=== PATIENT | female | born 1945 | race African-American/Black ===

== ENCOUNTER 2017-03-22 16:53 | Emergency (ER) | payer MEDICARE, OTHER ==
[2017-03-22] MEDS ORDERED: ASPIRIN 81 MG TABLET, CHEWABLE PO ONE (17:56)
--- NOTE | 2017-03-22 18:05 | ER Document Report ---
ED Medical Screen (RME) - General Chief Complaint: Passed Out Prior to Arrival Stated Complaint: FALL SYNCOPE Time Seen by Provider: 03/22/17 17:55 Mode of Arrival: Wheelchair Information source: Patient Notes: I have greeted and performed a rapid initial assessment of this patient. A comprehensive ED assessment and evaluation of the patient, analysis of test results and completion of the medical decision making process will be conducted by additional ED providers. 72-year-old female presents after syncopal episode, patient noted to have an injury neck pain. Attempted c-collar placement but due to patient discomfort unable to do so PHYSICAL EXAMINATION: GENERAL: Well-appearing, well-nourished and in no acute distress. HEAD: Bandaging of the head bleeding noted EYES: Pupils equal round extraocular movements intact, conjunctiva are normal. ENT: Nares patent NECK: Normal range of motion LUNGS: No respiratory distress Musculoskeletal: Cervical tenderness midline Normal range of motion TRAVEL OUTSIDE OF THE [place] IN LAST 30 DAYS: No - Related Data Allergies/Adverse Reactions: No Known Allergies Allergy (Verified 03/22/17 17:06) Past Medical History - Past Medical History Cardiac Medical History: Reports: Hx Heart Attack, Hx Hypertension Denies: Hx Coronary Artery Disease Pulmonary Medical History: Denies: Hx Asthma, Hx Bronchitis, Hx COPD, Hx Pneumonia Neurological Medical History: Denies: Hx Cerebrovascular Accident, Hx Seizures Renal/ Medical History: Denies: Hx Peritoneal Dialysis Musculoskeltal Medical History: Denies Hx Arthritis Past Surgical History: Reports: Hx Hysterectomy - Immunizations Hx Diphtheria, Pertussis, Tetanus Vaccination: No Physical Exam - Vital signs Vitals: Temp Pulse Resp BP Pulse Ox 98.5 F 78 16 113/67 93 03/22/17 17:07 03/22/17 17:07 03/22/17 17:07 03/22/17 17:07 03/22/17 17:07 Course - Vital Signs Vital signs: Temp Pulse Resp BP Pulse Ox 98.5 F 78 16 113/67 93 03/22/17 17:07 03/22/17 17:07 03/22/17 17:07 03/22/17 17:07 03/22/17 17:07
--- NOTE | 2017-03-22 18:31 | ER Document Report ---
ED General - General Chief Complaint: Passed Out Prior to Arrival Stated Complaint: FALL SYNCOPE Time Seen by Provider: 03/22/17 17:55 Mode of Arrival: Wheelchair Notes: Patient is a 72-year-old female with past medical history of CHF with an unknown ejection fraction and nursing evaluation for this concern, hypertension , hyperlipidemia, morbid obesity, insulin-dependent diabetes who presents after a syncopal episode. Patient states she had no symptoms prior to the episode of syncope. States she was standing at a [employer] and states he did not know that she had syncopized until she woke up on the ground. She arrives complaining of a dull, constant, aching pain to the right side of her neck. Nothing improves or worsens the pain. States dissection a second episode of syncope in the past 3 days without any preceding symptoms. She has no other prior history of syncope. She denies any prior history of requiring a AICD or wearing a "life vest". She has not seen her primary care doctor regarding today's concerns. She denies any focal numbness, numbness, nausea, vomiting, chest pain, headache. TRAVEL OUTSIDE OF THE [place] IN LAST 30 DAYS: No - Related Data Allergies/Adverse Reactions: No Known Allergies Allergy (Verified 03/22/17 17:06) Past Medical History - General Information source: Patient - Social History Smoking Status: Never Smoker Frequency of alcohol use: None Drug Abuse: None Lives with: Family Family History: Reviewed & Not Pertinent Patient has suicidal ideation: No Patient has homicidal ideation: No - Past Medical History Cardiac Medical History: Reports: Hx Heart Attack, Hx Hypertension Denies: Hx Coronary Artery Disease Pulmonary Medical History: Denies: Hx Asthma, Hx Bronchitis, Hx COPD, Hx Pneumonia Neurological Medical History: Denies: Hx Cerebrovascular Accident, Hx Seizures Renal/ Medical History: Denies: Hx Peritoneal Dialysis Musculoskeltal Medical History: Denies Hx Arthritis Past Surgical History: Reports: Hx Hysterectomy - Immunizations Hx Diphtheria, Pertussis, Tetanus Vaccination: No Hx Pneumococcal Vaccination: 09/10/15 Review of Systems - Review of Systems Notes: Constitutional: Negative for fever. Eyes: Negative for visual changes. ENT: Negative for facial injury Cardiovascular: Negative for chest injury. Respiratory: Negative for shortness of breath. Gastrointestinal: Negative for abdominal injury. Genitourinary: Negative for genital injury Musculoskeletal: Positive for neck injury. Skin: Positive for right scalp laceration Neurological: Negative for head injury. Physical Exam - Vital signs Vitals: Temp Pulse Resp BP Pulse Ox 98.5 F 78 16 113/67 93 03/22/17 17:07 03/22/17 17:07 03/22/17 17:07 03/22/17 17:07 03/22/17 17:07 Interpretation: Normal Notes: PHYSICAL EXAMINATION: GENERAL: Well-appearing, no acute distress. HEAD: Atraumatic, normocephalic. EYES: Pupils equal round and reactive to light, extraocular movements intact, sclera anicteric, conjunctiva are normal. ENT: nares patent, no oral pharyngeal trauma. No hemotympanum, no Haas's sign , no raccoon eyes. NECK: There is cervical spine tenderness in the C2-3 distribution. No step- offs or deformities. Cervical collar replaced after C-spine exam LUNGS: Breath sounds clear to auscultation bilaterally and equal. No wheezes rales or rhonchi. HEART: Regular rate and rhythm without murmurs. CHEST WALL: No ecchymosis over the chest wall. ABDOMEN: Soft, nontender, normoactive bowel sounds. No guarding, no rebound. No abdominal bruising EXTREMITIES: Normal range of motion, no pitting or edema. No long bone deformities. BACK: No midline spinal tenderness, step-offs, or deformities. NEUROLOGICAL: Face symmetric. Tongue protrudes midline. Extraocular motions intact. Pupils are 2 mm and equally reactive. Normal speech. Gait exam deferred. 5 out of 5 strength in both the distal and proximal upper and lower extremities bilaterally. Sensation is grossly intact throughout. PSYCH: Normal mood, normal affect. SKIN: Warm, Dry, normal turgor, no rashes or lesions noted. Course - Re-evaluation Re-evalutation: 03/22/17 18:29 Patient presents with syncope without any preceding symptoms concerning for possible cardiac etiology of her syncope. Patient has had 2 distinct episodes syncope over the last or days neither of which occurred during a positional change, startling event, and neither had any preceding symptoms. Patient fell today and struck the right parietal scalp and sustained a 3 cm laceration or prior staple repair. EKG demonstrates LVH but no additional concerning findings. At time of my evaluation she denies any symptoms beyond mild right- sided neck pain. She has no focal neurologic deficits. A CT of her head, cervical spine and face were ordered in triage. Indication for CT the face is unclear as patient has no evidence of significant facial trauma. Will obtain basic labs and plan for admission as I am concerned that patient is having a tachydysrhythmia as etiology for her episodes of syncope. 03/22/17 18:37 CT cervical spine result has been called notifying us that there is a C2 cervical spine fracture. She was ready in cervical spine precautions on the bed. A cervical collar has now been placed. She remains without any focal neurologic deficit. CT the head is unremarkable. She is in full spinal precautions at this point and will require transfer to tertiary Medical Center both for her syncope and cervical spine fracture. 03/22/17 19:19 I contacted [facility] for transfer. A CT of the thoracic spine has also been ordered to better clarify the T2 fracture. 03/22/17 19:37 I spoke with the neurosurgery PA who has requested this patient come through the ED as a trauma. 03/22/17 19:[address]Ben Rhoades the ED physician assistant golf professional who has accepted the patient into the ED as a trauma transfer. 03/22/17 20:05 Patient remains neurovascularly intact. The patient and her family at the bedside were updated on the care plan. Transportation is almost ready here and I will not defer the transportation for the CT of the thoracic spine as described completed at the receiving facility. - Vital Signs Vital signs: Temp Pulse Resp BP Pulse Ox 98.5 F 78 16 113/67 95 03/22/17 17:07 03/22/17 17:07 03/22/17 17:07 03/22/17 17:07 03/22/17 18:31 - Laboratory Result Diagrams: 03/22/17 19:30 03/22/17 19:30 Laboratory results interpreted by me: 03/22/17 19:30 Hgb 11.8 L MCH 26.2 L MCHC 31.7 L RDW 14.4 H - Diagnostic Test Radiology reviewed: Image reviewed, Reports reviewed Radiology results interpreted by me: 03/22/17 19:30 CT cervical spine: Dense II fracture - EKG Interpretation by Me Additional EKG results interpreted by me: 03/22/17 19:30 Sinus rhythm. Rate 71. No ST elevations or depressions. QTC 426. Procedures - Laceration/Wound Repair Head Time completed: 20:00 Wound length (cm): 3 Wound's Depth, Shape: Superficial Laceration pre-procedure: Sterile PPE donned Wound explored: Clean Irrigated w/ Saline (mLs): 200 Wound Debrided: Minimal Wound Repaired With: Landon - 2 Number of Sutures: 2 - landon Post-procedure NV exam normal: Yes Complications: No Critical Care Note - Critical Care Note Total time excluding time spent on procedures (mins): 36 Comments: Critical care time spent obtaining history from patient or surrogate, discussions with consultants, development of treatment plan with patient or surrogate, evaluation of patient's response to treatment, examination of patient , ordering and performing treatments and interventions, ordering and review of laboratory studies, re-evaluation of patient's condition, ordering and review of radiographic studies and review of old charts Discharge - Discharge Clinical Impression: Closed dens fracture Qualifiers: Encounter type: initial encounter Qualified Code(s): S12.100A - Unspecified displaced fracture of second cervical vertebra, initial encounter for closed fracture Syncope Qualifiers: Syncope type: unspecified Qualified Code(s): R55 - Syncope and collapse T2 vertebral fracture Qualifiers: Encounter type: initial encounter Fracture type: closed Fracture morphology: unspecified fracture morphology Qualified Code(s): S22.029A - Unspecified fracture of second thoracic vertebra, initial encounter for closed fracture Scalp laceration Qualifiers: Encounter type: initial encounter Qualified Code(s): S01.01XA - Laceration without foreign body of scalp, initial encounter Condition: Fair Disposition: [facility]
[2017-03-22 19:41] LABS: ABSOLUTE EOSINOPHILS # (AUTO) 0.1 10^3/uL (0.0-0.6); ABSOLUTE LYMPHOCYTES (AUTO) 1.7 10^3/uL (0.5-4.7); ABSOLUTE MONOCYTES (AUTO) 0.8 10^3/uL (0.1-1.4); ABSOLUTE NEUT (AUTO) 7.5 10^3/uL (1.7-8.2); BASOPHILS % (AUTO) 0.5 % (0-2); EOSINOPHILS % (AUTO) 0.7 % (0-6); HEMATOCRIT 37.2 % (36.0-47.0); HEMOGLOBIN 11.8 g/dL (12.0-15.5); HGB HCT DIFFERENCE -1.8; MEAN CORPUSCULAR HEMOGLOBIN 26.2 pg (27.0-33.4); MEAN CORPUSCULAR HGB CONC 31.7 g/dL (32.0-36.0); MEAN CORPUSCULAR VOLUME 83 fl (80-97); MONOCYTES % (AUTO) 7.8 % (3-13); RED CELL DISTRIBUTION WIDTH 14.4 % (11.5-14.0); WHITE BLOOD COUNT 10.2 10^3/uL (4.0-10.5)
[2017-03-22 19:56] LABS: ALANINE AMINOTRANSFERASE 29 U/L (9-52); ALBUMIN 3.9 g/dL (3.5-5.0); ALKALINE PHOSPHATASE 73 U/L (38-126); ANION GAP 14 (5-19); ASPARTATE AMINO TRANSFERASE 27 U/L (14-36); BILIRUBIN,DIRECT 0.5 mg/dL (0.0-0.4); BILIRUBIN,TOTAL 0.9 mg/dL (0.2-1.3); BLOOD UREA NITROGEN 34 mg/dL (7-20); CALCIUM 9.9 mg/dL (8.4-10.2); CARBON DIOXIDE 33 mmol/L (22-30); CHLORIDE 96 mmol/L (98-107); CREATINE KINASE 175 U/L (30-135); CREATININE RESULT 1.62 mg/dL (0.52-1.25); GLUCOSE 247 mg/dL (75-110); POTASSIUM 4.2 mmol/L (3.6-5.0); SODIUM 142.5 mmol/L (137-145); TOTAL PROTEIN 7.4 g/dL (6.3-8.2)
[2017-03-22 20:07] LABS: CREATINE KINASE MB 1.04 ng/mL (<4.55)
[2017-03-22 20:11] VITALS: BP 113/52
[2017-03-22 20:12] LABS: TROPONIN I < 0.012 ng/mL
--- NOTE | 2017-03-23 11:44 | EKG REPORT ---
SEVERITY:- BORDERLINE ECG - SINUS RHYTHM LVH BY VOLTAGE : Confirmed by: Caitie Giordano 23-Mar-2017 11:43:45
== END 2017-03-22 20:20 | disposition short-term general hospital (02) ==
LOC: ER 16:53
PROC: 0HQ0XZZ Repair Scalp Skin, External Approach (ICD-10-PCS; principal; 2017-03-22)
DX: S12.100A Unspecified displaced fracture of second cervical vertebra, initial encounter for closed fracture (principal); S22.029A Unspecified fracture of second thoracic vertebra, initial encounter for closed fracture; S01.01XA Laceration without foreign body of scalp, initial encounter; R55 Syncope and collapse; I10 Essential (primary) hypertension; E78.5 Hyperlipidemia, unspecified; E66.01 Morbid (severe) obesity due to excess calories; E11.9 Type 2 diabetes mellitus without complications; Z79.4 Long term (current) use of insulin; W19.XXXA Unspecified fall, initial encounter
CPT/HCPCS: 93005; 99291; 36415; 82553; 82550; 85025; 80053; 84484; 71010; 70450; 70486; 72125; 93010; 12002; L0172; L0120

== ENCOUNTER 2019-08-24 07:45 | Day surgery (SDC) | payer MEDICARE, OTHER ==
[~2019-08-24 07:45] MED LIST: DIPHENHYDRAMINE HCL 50 MG/ML VIAL ONE; EPINEPHRINE INJ 1 MG/10 ML DISP.SYRIN ONE; FLUMAZENIL INJ 0.5 MG/5 ML VIAL ONE; GLUCAGON,HUMAN RECOMB 1 MG INJ ONE; NALOXONE HCL INJ/PF 0.4 MG/1 ML SDV ONE; ONDANSETRON HCL INJ/PF 4 MG/2 ML SDV ONE
[2019-08-24] MEDS: FENTANYL CITRATE INJ/PF 100 MCG/2 ML AMPUL ONE ×2 (08:27→08:30)
[2019-08-24] MEDS: MIDAZOLAM 2 MG/2 ML INJ ONE ×2 (08:27→08:29)
--- NOTE | 2019-08-24 08:59 | Operative Report ---
Nonrecallable Operative Report DATE OF SURGERY: 08/24/19 PREOPERATIVE DIAGNOSIS: History of cecal polyps POSTOPERATIVE DIAGNOSIS: History of cecal polyps OPERATION: Screening colonoscopy SURGEON: PRISCILA GONZALEZ ANESTHESIA: Moderate Sedation TISSUE REMOVED OR ALTERED: None COMPLICATIONS: None ESTIMATED BLOOD LOSS: 0 INTRAOPERATIVE FINDINGS: See dictation PROCEDURE: Patient was brought to the endoscopy suite awake alert stable condition given IV sedation placed in the left lateral decubitus position. After appropriate timeout and site verification we commenced the procedure. The Olympus colonoscope was passed easily into the rectum and traversed the sigmoid colon to the descending colon advanced into the splenic flexure transverse colon hepatic flexure ascending colon and then easily passed into the cecum. There was no polyps in the cecum. We then slowly withdrew the scope of a period of approximately 8 to 10 minutes the ascending colon was visualized there were a number of small tics in the mid a sending colon hepatic flexure appeared to be normal as well as the transverse colon there were number takes in the distal transverse colon splenic flexure. As we could around the splenic flexure down the descending colon appeared to be normal no mucosal abnormalities no evidence of polyps were number of sigmoid: Diverticuli. As we slowly withdrew the scope to the rectum there were grade 2 hemorrhoids were noted nonbleeding. The scope was withdrawn. Findings sigmoid diverticulosis ascending colon diverticulosis. Descending colon diverticulosis. No evidence of any polyps. Bowel prep was good. Recommendations repeat colonoscopy 5 years. Patient tolerated the procedure well.
--- NOTE | 2019-08-24 09:00 | Discharge Summary ---
Discharge Summary (SDC) - Discharge Final Diagnosis: History of cecal polyps. Date of Surgery: 08/24/19 Discharge Date: 08/24/19 Condition: Good Discharge Diet: As Tolerated Discharge Activity: Activity As Tolerated Report the Following to Your Physician Immediately: Shortness of Breath, Nausea, Vomiting, Increase in Pain, Fever over 101 Degrees, Unusual Bleeding - Follow-up in the surgery clinic in 2 to 3 weeks
[2019-08-24 09:39] VITALS: BP 127/71
== END 2019-08-24 09:51 | disposition home or self-care (01) ==
LOC: END 07:45
PROVIDERS: ATTEND Surgery
DX: Z12.11 Encounter for screening for malignant neoplasm of colon (principal); Z86.010 Personal history of colon polyps; I99.9 Unspecified disorder of circulatory system; E11.9 Type 2 diabetes mellitus without complications; I11.9 Hypertensive heart disease without heart failure; E78.00 Pure hypercholesterolemia, unspecified; Z79.4 Long term (current) use of insulin; Z79.84 Long term (current) use of oral hypoglycemic drugs; Z79.82 Long term (current) use of aspirin; Z79.899 Other long term (current) drug therapy; E66.01 Morbid (severe) obesity due to excess calories; Z68.36 Body mass index [BMI] 36.0-36.9, adult
CPT/HCPCS: 82962; G0105; J2250; J3010; 45378; J0171; J1200; J1610; J2310; J2405; J3490